=== PATIENT | female | born 1990 ===

== ENCOUNTER → 2019-02-25 | Emergency (ER) | payer OTHER ==
[~2019-02-25] VITALS: Ht 167.6 cm; Wt 53.5 kg
[~2019-02-25] MED LIST: ACIDOPHILUS1 EAC3 PO; ZANTAC150 MG PO
== END | disposition home or self-care (01) ==
LOC: ER 22:10
DX: S61.225A Laceration with foreign body of left ring finger without damage to nail, initial encounter (principal); W25.XXXA Contact with sharp glass, initial encounter; Y93.89 Activity, other specified; Y92.69 Other specified industrial and construction area as the place of occurrence of the external cause; Y99.8 Other external cause status

== ENCOUNTER 2019-03-08 08:03 | Emergency (ER) | payer OTHER ==
[~2019-03-08] VITALS: Ht 167.6 cm; Wt 53.5 kg
== END 2019-03-08 08:55 | disposition home or self-care (01) ==
LOC: ER 08:03
DX: Z48.02 Encounter for removal of sutures (principal)